=== PATIENT | female | born 1960 | race Caucasian/White ===

== ENCOUNTER 2023-11-03 10:27 | Emergency (ER) | payer OTHER ==
[~2023-11-03] VITALS: Ht 170.2 cm; Wt 113.4 kg
[2023-11-03 10:53] VITALS: BP 193/83
[2023-11-03] MEDS ORDERED: Ketorolac Tromethamine 30mg Vial IM ONE (11:25)
[2023-11-03] MEDS ORDERED: Cyclobenzaprine10 MG PO (11:40)
[2023-11-03] MEDS ORDERED: LIDO700A20 TOP (11:40)
== END 2023-11-03 11:46 | disposition home or self-care (01) ==
LOC: ER 10:27
DX: S46.911A Strain of unspecified muscle, fascia and tendon at shoulder and upper arm level, right arm, initial encounter (principal); W18.30XA Fall on same level, unspecified, initial encounter
CPT/HCPCS: 73030; 96372; 99283-25; J1885